=== PATIENT | male | born 2000 ===

== ENCOUNTER 2024-09-24 21:52 | Emergency (ER) | payer SELFPAY ==
[~2024-09-24] VITALS: Ht 180.3 cm; Wt 86.8 kg
[2024-09-25 03:22] VITALS: BP 163/80; TEMP 100; O2SAT 97
== END 2024-09-25 05:07 | disposition left against medical advice (07) ==
LOC: M ED 21:52
DX: Z53.21 Procedure and treatment not carried out due to patient leaving prior to being seen by health care provider (principal)